=== PATIENT | female | born 1960 | race Caucasian/White ===

== ENCOUNTER → 2019-04-27 09:02 | Outpatient (BNVA) | payer MEDICARE, MEDICAID, SELFPAY | PROVIDERS: Family Provider Family Medicine; PCP Family Medicine; Visit Provider Nurse Practitioner Psychiatric/Mental Health | DX: F31.89 Other bipolar disorder (principal); F20.1 Disorganized schizophrenia; F78 Other intellectual disabilities | CPT/HCPCS: 99213 ==

== ENCOUNTER → 2019-07-23 07:28 | Outpatient (BNVA) | payer MEDICARE, MEDICAID, SELFPAY | PROVIDERS: Family Provider Family Medicine; PCP Family Medicine; Visit Provider Nurse Practitioner Psychiatric/Mental Health | DX: F31.89 Other bipolar disorder (principal); F20.1 Disorganized schizophrenia; F78 Other intellectual disabilities | CPT/HCPCS: 99213 ==

== ENCOUNTER → 2019-10-22 07:50 | Outpatient (BNVA) | payer MEDICARE, MEDICAID, SELFPAY | PROVIDERS: Family Provider Family Medicine; PCP Family Medicine; Visit Provider Nurse Practitioner Psychiatric/Mental Health | DX: F31.89 Other bipolar disorder (principal); F20.1 Disorganized schizophrenia; F78 Other intellectual disabilities; F60.3 Borderline personality disorder | CPT/HCPCS: 99213 ==

== ENCOUNTER 2019-10-23 13:53 | Outpatient (CLI) | payer MEDICARE, MEDICAID, SELFPAY ==
--- NOTE | 2019-10-23 14:01 | XR_ITS ---
WS: [id number] Bone mineral density performed on a [employer], 10/23/2019 Clinical data: POST MENOPAUSAL Findings: The first 4 lumbar vertebral bodies demonstrated the bone mineral density of 1.151 g/sq cm for a jayjay g adult T score of -0.4. Measurement of the left hip reveals a bone mineral density of 0.909 g/cm2 with a young adult T score of -0.8. Measurement of the right hip reveals the bone mineral density of 0.840 g/cm2 for young adult T score of -1.3. XR/XR DEXA axial skeleton* [id number] Impression: 1. Normal bone mineral density of the lumbar spine and left hip. 2. Osteopenia of the right hip.
--- NOTE | 2019-10-23 14:37 | MM_ITS ---
WS: [id number] BILATERAL DIGITAL SCREENING MAMMOGRAPHY WITH CAD CLINICAL INFORMATION: SCREENING HISTORY: Screening mammogram. No current complaints. COMPARISON: TECHNIQUE: Bilateral CC and MLO views. FINDINGS: Scattered fibroglandular densities bilaterally. No suspicious focal mass, asymmetry, calcifications, or architectural distortion. No evidence of malignancy. MM/[place] [id number] IMPRESSION: BI-RADS: 2-Benign FOLLOW UP: 1 Year Follow-up Recommend return to annual screening mammography.
== END 2019-10-23 13:54 | disposition home or self-care (01) ==
PROVIDERS: Family Provider Family Medicine; PCP Family Medicine; Visit Provider Family Medicine
DX: Z78.0 Asymptomatic menopausal state (principal); Z12.31 Encounter for screening mammogram for malignant neoplasm of breast; M85.88 Other specified disorders of bone density and structure, other site
CPT/HCPCS: 77067; 77080

== ENCOUNTER → 2019-12-17 08:05 | Outpatient (BNVA) | payer MEDICARE, MEDICAID, SELFPAY | PROVIDERS: Family Provider Family Medicine; PCP Family Medicine; Visit Provider Nurse Practitioner Psychiatric/Mental Health | DX: F31.89 Other bipolar disorder (principal); F20.1 Disorganized schizophrenia; F78 Other intellectual disabilities | CPT/HCPCS: 99213 ==

== ENCOUNTER → 2019-12-31 08:15 | Outpatient (BNVA) | payer MEDICARE, MEDICAID, SELFPAY | PROVIDERS: Family Provider Family Medicine; PCP Family Medicine; Visit Provider Nurse Practitioner Psychiatric/Mental Health | DX: Z79.899 Other long term (current) drug therapy (principal) | CPT/HCPCS: 80053; 80061; 80178; 83036; 85025 ==

== ENCOUNTER → 2020-02-11 08:06 | Outpatient (BNVA) | payer MEDICARE, MEDICAID, SELFPAY | PROVIDERS: Family Provider Family Medicine; PCP Family Medicine; Visit Provider Nurse Practitioner Psychiatric/Mental Health | DX: F31.89 Other bipolar disorder (principal); F20.1 Disorganized schizophrenia; F78 Other intellectual disabilities | CPT/HCPCS: 99213 ==

== ENCOUNTER 2020-03-22 21:05 | Emergency (ER) | payer MEDICARE, MEDICAID, SELFPAY ==
--- NOTE | 2020-03-22 21:15 | XRR_ITS ---
PROCEDURE INFORMATION: Exam: XR Chest, 1 View Exam date and time: 03/22/2020 9:24 PM Age: 60 years old Clinical indication: Shortness of breath; Additional info: SOB TECHNIQUE: Imaging protocol: XR of the chest Views: 1 view. COMPARISON: CR Chest 1 [place] [id number] 11/28/2016 10:39 AM FINDINGS: Lungs: Asymmetric airspace opacity is noted in the right upper lobe and retrocardiac right lung compatible with pneumonic infiltrates. The left lung is clear. The pulmonary vascularity is within normal limits. Pleural space: Unremarkable. No pleural effusion. No pneumothorax. Heart/Mediastinum: The heart is enlarged. Bones/joints: No acute abnormality. XR/XR chest 1V portable [id number] IMPRESSION: Asymmetric airspace opacity is noted in the right upper lobe and retrocardiac right lung compatible with pneumonic infiltrates.
[2020-03-22 21:19] VITALS: BP 123/84; PULSE 82; RESP 18; TEMP 37.2; O2SAT 95; BMI 35.1
--- NOTE | 2020-03-22 21:31 | ED_ITS ---
HPI - COVID General: Chief Complaint: COVID symptoms Stated Complaint: COV + Low Oxy Time Seen by Provider: 03/22/20 21:23 Source: patient Mode of arrival: ambulatory Limitations: no limitations Triage information: No fever, cough or shortness of breath . No known COVID + exposure last 14 days History of Present Illness: HPI Narrative: 60-year-old female who is here from assisted living. She had tested positive for Covid today with a rapid positive. Patient states that she has slight cough and shortness of breath. They have been checking her pulse ox every 15 minutes and had some readings in the 80s. Patient denies any shortness of breath at rest but does get dyspneic with activity. She denies any vomiting or diarrhea. She denies any pain. She said she has had a slight dry cough. COVID 19 common symptoms: positive fever(s), chills and non-productive cough; negative headache(s), throat pain, nausea, vomiting or diarrhea COVID 19 other sytmptoms: negative chest pain COVID Results: No Data to Display Review of Systems Const: Reports: fever(s) and chills Eyes: Denies: blurry vision or eye discomfort ENMT: Denies: throat pain or dental pain Card: Denies: chest pain Resp: Reports: non-productive cough GI: Denies: abdominal pain, nausea, vomiting or diarrhea : Denies: dysuria Musc: Denies: neck pain or back pain Skin/Breast: Denies: rash Neuro: Denies: headache(s) Psych: Denies: depression Allen/Lymph: Denies: easy bruising All/Imm: Denies: urticaria PFSH ED PFSH: Medical History (Updated 03/22/20 @ 21:35 by Micaela Heredia MD) Disorganized schizophrenia Other bipolar disorder Provisional Other intellectual disabilities Social History (Updated 04/27/19 @ 09:42 by Tiffany Mir LPN) Smoking and tobacco status: former smoker Physical Exam Const: COMMON NORMALS: no acute distress, patient oriented x3 and healthy appearing HENMT: COMMON NORMALS: normocephalic and atraumatic HEAD & SCALP: normocephalic and atraumatic Eye: COMMON NORMALS: Equal, round and reactive pupils present and EOMs intact bilaterally PUPIL: Yes Equal, round and reactive pupils present Neck/C-Spine: COMMON NORMALS: full ROM and supple Chest: COMMONS NORMALS: normal inspection of the chest and normal palpation of entire chest wall Resp: COMMON NORMALS: normal respiratory effort, No retractions, No use of accessory muscles and clear to auscultation bilaterally AUSCULTATION: clear to auscultation bilaterally Cardio: COMMON NORMALS: regular rate, regular rhythm and No murmurs present (Cardio) RATE: regular rate RHYTHM: regular rhythm GI: COMMON NORMALS: Normal to inspection, nondistended, normoactive bowel sounds present, Soft to palpation, non-tender and no masses PALPATION: Yes Soft to palpation Extremity: COMMON NORMALS: normal to inspection and full ROM Neuro: COMMON NORMALS: patient oriented x3, moves all extremities and no focal motor deficits Psych: COMMON NORMALS: mental status grossly normal, Normal thought process present and cooperative THOUGHT PROCESS: Normal thought process present Skin: COMMON NORMALS: no rashes or lesions noted and no wounds GENERAL SKIN EXAM: no rashes or lesions noted Course Vital Signs: Vital signs: Vital Signs Temperature 98.9 F 03/22/20 21:19 Pulse Rate 82 03/22/20 21:19 Respiratory Rate 18 03/22/20 21:19 Blood Pressure 123/84 03/22/20 21:19 Pulse Oximetry 95 03/22/20 21:19 MDM - COVID MDM Narrative: Medical decision making narrative: Jenae presents here with pneumonia. X-ray has appearance of a lobar pneumonia she did test positive for Covid earlier today but will retest her with the x-ray appearance. She is requiring oxygen here I spoke to hospitalist will admit at this time. Lab Data: Labs: Lab Results 03/22/20 Range/Units 21:35 Specimen Type Arterial Sample Site Brachial, right ABG pH 7.43 (7.35-7.45) ABG pCO2 43.2 (35-45) mmHg ABG pO2 64.7 L (80.0-100.0) mmH g ABG HCO3 28.3 H (22-26) mmol/L ABG Base Excess 3.4 H (-2.0-2.0) mmol/ L Roger Test N/a Hematocrit 38.1 (37-47) % O2 Delivery Device Room air FiO2 21.0 % Tag Clerk ID Jlg Imaging Data: CXR: Radiologist's impression: [id number] [address] XRay Report Signed Patient: Jenae Polanco Unit #: [id number] : 1960 Age/Sex: 60 / F ADM Date: 03/22/20 Loc: ER Room/Bed: Attending Dr: Ordering Provider/Ordering MD: Micaela Heredia MD Date of Service: 03/22/20 Procedure(s): XR chest 1V portable [id number] Accession Number(s): [id number] Report Number: [id number] PROCEDURE INFORMATION: Exam: XR Chest, 1 View Exam date and time: 03/22/2020 9:24 PM Age: 60 years old Clinical indication: Shortness of breath; Additional info: SOB TECHNIQUE: Imaging protocol: XR of the chest Views: 1 view. COMPARISON: CR Chest 1 [place] [id number] 11/28/2016 10:39 AM FINDINGS: Lungs: Asymmetric airspace opacity is noted in the right upper lobe and retrocardiac right lung compatible with pneumonic infiltrates. The left lung is clear. The pulmonary vascularity is within normal limits. Pleural space: Unremarkable. No pleural effusion. No pneumothorax. Heart/Mediastinum: The heart is enlarged. Bones/joints: No acute abnormality. XR/XR chest 1V portable [id number] IMPRESSION: Asymmetric airspace opacity is noted in the right upper lobe and retrocardiac right lung compatible with pneumonic infiltrates. 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
[2020-03-22 21:47] LABS: ABG PCO2 43.2 mmHg (35-45); ABG PH Result 7.43 (7.35-7.45); Arterial Blood Gas Hematocrit 38.1 % (37-47); Base Excess ABG 3.4 mmol/L (-2.0-2.0); Blood Gas Sample Site Brachial, right; Blood Gas Sample Type Arterial; HCO3 ABG 28.3 mmol/L (22-26); Oxygen Device ROOM AIR; PO2 ABG 64.7 mmHg (80.0-100.0)
[2020-03-22 21:51] VITALS: O2SAT 91
[2020-03-22 22:00] VITALS: BP 121/74; PULSE 83; RESP 19; O2SAT 93
[2020-03-22] MEDS: cefTRIAXone 1,000 MG in sodium chloride 0.9% (plus) 50 ML 100 MG IV (22:15)
--- NOTE | 2020-03-22 22:49 | PM.HP ---
Providers/Chief Complaint Primary Care Provider: Aldair Moffett MD Chief Complaint: COV + Low Oxy History of Present Illness Jenae Polanco is a 60 year old female Medications/Allergies Home Medications Medication Instructions Recorded Confirmed Last Taken Type acetaminophen 500 mg tablet 1,000 mg PO TID PRN tab 04/27/19 04/27/19 Unknown History albuterol sulfate 90 mcg/actuation 2 puff INHALATION QID PRN 04/27/19 04/27/19 Unknown History aerosol inhaler atorvastatin 80 mg tablet 80 mg PO .QHS tab 04/27/19 04/27/19 Unknown History calcium carbonate 500 mg-vitamin 1 tab PO BID tab 04/27/19 04/27/19 Unknown History D3 200 unit-vitamin K2 90 mcg tablet esomeprazole magnesium 40 mg 40 mg PO QDAY 04/27/19 04/27/19 Unknown History capsule,delayed release fluticasone propionate 50 1 spray INTRANASAL BID 04/27/19 04/27/19 Unknown History mcg/actuation nasal spray,suspension levothyroxine 50 mcg capsule 50 mcg PO .weekly cap 04/27/19 04/27/19 Unknown History levothyroxine 50 mcg tablet 50 mcg PO QDAY 04/27/19 04/27/19 Unknown History metformin 500 mg tablet,extended 1,000 mg PO QDAY tab 04/27/19 04/27/19 Unknown History release 24 hr polyethylene glycol 3350 17 17 gm PO QDAY PRN 04/27/19 04/27/19 Unknown History gram/dose oral powder haloperidol 5 mg tablet 5 mg PO BID PRN #60 tab 12/17/19 12/17/19 Unknown Rx clonazepam 0.5 mg tablet 0.5 mg PO BID #60 tab 02/11/20 02/11/20 Unknown Rx fluoxetine 20 mg capsule 20 mg PO .morning #30 cap 02/11/20 02/11/20 Unknown Rx fluoxetine 40 mg capsule 40 mg PO QAM #30 cap 02/11/20 02/11/20 Unknown Rx lithium carbonate 300 mg capsule 300 mg PO BID #60 cap 02/11/20 02/11/20 Unknown Rx risperidone 0.5 mg tablet 0.5 mg PO BID #60 tab 02/11/20 02/11/20 Unknown Rx Allergies Allergy/AdvReac Type Severity Reaction Status Date / Time Penicillins Allergy Unknown Unknown Unverified 04/27/19 09:11 Sulfa (Sulfonamide Allergy Unknown Unknown Unverified 04/27/19 09:11 Antibiotics) PFSH Acute PFSH: Medical History (Updated 03/22/20 @ 22:55 by Stephanie Reilly MD) Diabetes Disorganized schizophrenia History of hysteroscopy Hypothyroid Other bipolar disorder Provisional Other intellectual disabilities Paranoid schizophrenia Peptic ulcer disease Postmenopausal bleeding Surgical History (Updated 03/22/20 @ 22:54 by Stephanie Reilly MD) No significant past surgical history Hysteroscopy and D&C Family History (Updated 03/22/20 @ 22:54 by Stephanie Reilly MD) Other Family history non-contributory Social History (Updated 04/27/19 @ 09:42 by Tiffany Mir LPN) Smoking and tobacco status: former smoker Vitals/I&O/Wt Last Vital Signs Temp 98.9 F 03/22/20 21:19 Pulse 82 03/22/20 21:19 Resp 18 03/22/20 21:19 BP 123/84 03/22/20 21:19 Pulse Ox 95 03/22/20 21:19 Weight last 48 hrs Weight 84.368 kg A&P Assessment and plan (1) Acute respiratory failure with hypoxia: Status: Acute (2) Lobar pneumonia: Status: Acute (3) COVID-19: Status: Acute Coding Level of Care Code Acute [employer] Correspondent for [facility] Fwd Diagnoses Acute respiratory failure with hypoxia J96.01 Lobar pneumonia J18.1 COVID-19 U07.1
[2020-03-22] MEDS: azithromycin 500 MG in sodium chloride 0.9% 250 ML 250 MG IV (23:15)
[2020-03-22 23:21] VITALS: BP 114/76; PULSE 84; RESP 20; O2SAT 91
[2020-03-22 23:53] LABS: Procalcitonin 0.06 ng/mL (0-0.5)
[2020-03-23] VITALS (10 sets, daily range): BP systolic 109–132; BP diastolic 69–86; PULSE 80–93; RESP 15–28; TEMP 37.4; O2SAT 90–95
[2020-03-23 00:05] LABS: Alanine Aminotransferase 20 U/L (0-33); Albumin Level 3.9 g/dL (3.5-5.2); Alkaline Phosphatase 59 IU/L (35-105); Anion Gap 13.9 (5-19); Aspartate Amino Transferase 24 U/L (0-32); Blood Urea Nitrogen 17 mg/dL (8-23); C Reactive Protein 11.2 mg/L (0.0-4.9); Calcium 9.5 mg/dL (8.5-10.5); Carbon Dioxide 28 mmol/L (22-29); Chloride 101 mmol/L (98-107); Globulin 2.9 g/dL (1.3-4.6); Glomerular Filtration Rate 63.7 mL/min (90-130); Glucose 95 mg/dL (65-115); Osmolality Calculated 289 mOsm/kg (285-295); Potassium 3.9 mmol/L (3.5-5.1); Sodium 139 mmol/L (136-145); Total Bilirubin 0.4 mg/dL (0.15-1.2); Total Protein 6.8 g/dL (6.6-8.7)
[2020-03-23 00:09] LABS: Basophils % 0.6 %; Eosinophils % 0.8 %; Hematocrit 39.7 % (37.0-47.0); Hemoglobin 12.5 g/dL (11.5-15.3); Lymphocytes # 0.6 10^3/uL (0.8-4.8); Lymphocytes % 16.4 %; Mean Corpuscular HGB Conc 31.5 g/dL (30.0-36.0); Mean Corpuscular Hemoglobin 29.7 pg (28.0-34.0); Mean Corpuscular Volume 94.3 fL (81-99); Mean Platelet Volume 11.8 fL (7.4-10.4); Monocytes # 0.5 10^3/uL (0.2-0.9); Monocytes % 13.3 %; Neutrophils # 2.43 10^3/uL (1.8-7.7); Neutrophils % 68.6 %; Nucleated Red Blood Cells % 0 %; Platelet Count 137 10^3/cmm (130-400); Red Blood Count 4.21 10^6/uL (4.1-5.3); White Blood Count 3.5 10^3/uL (4.0-10.0)
[2020-03-23 00:17] LABS: D Dimer 0.42 ug/mIFEU (0-0.59)
[2020-03-23 00:18] LABS: Fibrinogen 574 mg/dL (174-498)
--- NOTE | 2020-03-23 00:18 | P.EN_ITS ---
Event Note Event Note: Patient was evaluated when Dr. Heredia told me about +COVID-19 and need for monitoring for O2 saturation. When I evaluated the patient she had no symptoms was saturating well on room air 9394% caregiver was at the bedside who told me about all the HPI, she did not experience any symptoms today when O2 saturation was checked it was 88% on room air hence she was brought to the hospital. No fever, nausea, vomiting, diarrhea at the facility. Point to be noted as she has nail [place] and she used regular pulse ox to monitor O2 saturation. Diagnosis in the ER revealed normal CBC, BMP mildly reactive CRP 11.2, chest x- ray showed COVID-19 pattern infiltrate with dense consolidation right upper lob e, she has simple pneumonia for which she will be discharged on Levaquin from the ER(however procalcitonin is unremarkable), I have talked with Dr. Maldonado. No need to start Decadron or remdesivir as she is asymptomatic and not requiring oxygenation supplementation. Caregiver understood the plan, Dr. Maldonado updated.
[2020-03-23 00:53] LABS: SARS Covid-2 Antigen Positive (Negative)
--- NOTE | 2020-03-23 01:08 | W.ED.COVID ---
HPI - COVID General: Chief Complaint: COVID symptoms Stated Complaint: COV + Low Oxy Time Seen by Provider: 03/22/20 21:23 Source: patient Mode of arrival: ambulatory Limitations: no limitations Triage information: No fever, cough or shortness of breath. No known COVID + exposure last 14 days History of Present Illness: HPI Narrative: I was asked by Dr. Reilly to discharge this patient for him as he was busy and did not feel the patient needed admitted. He did see and evaluate the patient and has informed me he will place a consult note. Patient was to be admitted for mild hypoxemia and being positive for the COVID-[address] Reilly's assessment the patient has no respiratory distress and is saturating 95% or above. Ultimately after full evaluation he wanted the patient discharged home and asked me to prescribe Levaquin but no oxygen or steroids. COVID 19 common symptoms: positive non-productive cough and dyspnea; negative fever(s), chills, productive cough, fatigue, body aches, headache(s), throat pain, nausea, vomiting or diarrhea COVID 19 other sytmptoms: negative chest pain or confusion COVID Results: SARS-CoV-2 Antigen (Rapid) Positive (Negative) H 03/22/20 22:15 03/22/20 Review of Systems Const: Denies: fever(s), chills, body aches, fatigue, malaise or diaphoresis Eyes: Denies: change in vision, blurry vision, photophobia, eye discomfort, eye discharge, eye redness or yellow eyes ENMT: Denies: throat pain, odynophagia, hoarseness, swelling of lips/tongue, ear or mastoid pain, ear discharge, change in hearing or nasal discharge Card: Denies: chest pain, palpitations, irregular heart rhythm, edema, lightheadedness, syncope, pre-syncope, dyspnea on exertion or orthopnea Resp: Reports: dyspnea and non-productive cough; Denies: productive cough, wheezing, hemoptysis or chest congestion GI: Denies: abdominal pain, nausea, vomiting, hematemesis, coffee ground emesis, heartburn, diarrhea, constipation, GI cramping, hematochezia or melena : Denies: flank pain, dysuria, urinary frequency, urinary urgency or hematuria Musc: Denies: neck pain, back pain, extremity pain, extremity swelling, joint pain, joint swelling, joint redness, joint warmth or joint stiffness Skin/Breast: Denies: rash, pruritus, erythema, skin pain or skin tenderness Neuro: Denies: headache(s), numbness in extremities, weakness in extremities, sensory changes, lack of coordination, difficulty walking, dizziness, vertigo, confusion, Slurred speech present or seizure-like activity Allen/Lymph: Denies: easy bruising, easy bleeding, petechiae, purpura or enlarged lymph nodes All/Imm: Denies: urticaria, throat swelling, tongue swelling, facial swelling or acute wheezing PFSH ED PFSH: Medical History Diabetes Disorganized schizophrenia History of hysteroscopy Hypothyroid Other bipolar disorder Provisional Other intellectual disabilities Paranoid schizophrenia Peptic ulcer disease Postmenopausal bleeding Surgical History No significant past surgical history Hysteroscopy and D&C Family History Other Family history non-contributory Social History Smoking and tobacco status: former smoker Physical Exam Const: COMMON NORMALS: no acute distress, patient oriented x3, no limitations and alert GENERAL APPEARANCE: cooperative HENMT: COMMON NORMALS: normocephalic, atraumatic, external ears normal, EAC's normal and Normal external nose present HEAD & SCALP: normal to inspection, normocephalic and atraumatic FACE & SINUS: normal facial exam and face symmetric NOSE: Normal external nose present and Normal nares present EXTERNAL EAR: Yes external ears normal EXTERNAL AUDITORY CANAL: EAC's normal MOUTH: Normal oral and palatal mucosa present, lip normal and tongue normal Eye: COMMON NORMALS: Equal, round and reactive pupils present and conjunctivae normal GENERAL EYE: appearance normal, both eyes and all related structures ALIGNMENT: Yes alignment normal PERIORBITAL: periorbital findings normal EYELID: eyelids normal CONJUNCTIVA: Yes conjunctivae normal SCLERA: sclerae normal PUPIL: Yes Equal, round and reactive pupils present Neck/C-Spine: COMMON NORMALS: full ROM, no lymphadenopathy, supple, no meningeal signs and no JVD GENERAL: Yes normal visual inspection and Yes trachea midline Chest: COMMONS NORMALS: normal inspection of the chest and normal palpation of entire chest wall Resp: COMMON NORMALS: normal respiratory effort, No retractions, No use of accessory muscles and clear to auscultation bilaterally EFFORT & INSPECTION: Yes able to speak in complete sentences and Yes symmetric chest movement AUSCULTATION: clear to auscultation bilaterally, no crackles, no rales, rhonchi and no wheezes Cardio: COMMON NORMALS: no JVD, regular rate, regular rhythm, S1 normal heart sound present and S2 normal heart sound present RATE: regular rate RHYTHM: regular rhythm HEART SOUNDS: S1 normal heart sound present, S2 normal heart sound present, no click, no gallops, no murmurs and no rubs GI: COMMON NORMALS: Soft to palpation and No hepatosplenomegaly present PALPATION: Yes Soft to palpation, No Tenderness to palpation present (GI), No Guarding due to palpation present (GI), No Rigid due to palpation, Yes No hepatosplenomegaly present, No Hernia present, No Palpable mass present and No Pulsatile mass present : COMMON NORMALS: Yes no CVA tenderness BLADDER/KIDNEY EXAM: Yes no CVA tenderness EXTERNAL FEMALE EXAM: No Hernia present Back/Pelvis: COMMON NORMALS: no CVA tenderness, thoracic and lumbar spine normal to inspection, no thoracic nor lumbar tenderness and thoraco-lumbar ROM normal Extremity: COMMON NORMALS: normal to inspection, full ROM, capillary refill normal, no joint enlargement, no clubbing, cyanosis or edema and no calf tenderness Neuro: COMMON NORMALS: patient oriented x3, CN's II-XII intact bilaterally, moves all extremities, no focal motor deficits and no sensory deficits noted SENSORIUM/ORIENTATION: Yes alert MENINGEAL SIGNS: Yes no meningeal signs SPEECH: speech normal Psych: COMMON NORMALS: mental status grossly normal, Normal thought process present, cooperative, normal affect, speech normal and activity/motor behavior normal SPEECH: Yes normal speech THOUGHT PROCESS: Normal thought process present Skin: COMMON NORMALS: no rashes or lesions noted, turgor normal, no jaundice, no petechiae and no mottling GENERAL SKIN EXAM: no rashes or lesions noted and turgor normal Course Vital Signs: Vital signs: Vital Signs Temperature 98.9 F 03/22/20 21:19 Pulse Rate 80 03/23/20 00:21 Respiratory Rate 20 H 03/23/20 00:21 Blood Pressure 114/70 03/23/20 00:21 Pulse Oximetry 95 03/23/20 00:21 MDM - COVID MDM Narrative: Medical decision making narrative: Patient was seen and evaluated by Dr. Heredia who felt the patient needed admitted for mild hypoxemia and COVID-[address] Reilly has seen and evaluated the patient and after talking with the fur blender they all feel comfortable taking her home instead. I been asked to start the patient on Levaquin daily and they do have the ability to monitor the patient for her pulse ox at the assisted living facility and agree to return for the parameters we discussed. This is how the patient, her fur blender and Dr. Reilly want to proceed so I will go ahead and place the discharge orders and prescriptions per his request. After reviewing criteria the patient is also a candidate for Bamlanivimab and after discussing all the risks and benefits the patient does want to go through with the infusion. I will give for this and also discharge her home on Levaquin as requested. Lab Data: Attestation: I reviewed the patient's lab results. Labs: Lab Results 03/22/20 03/22/20 03/22/20 Range/Units 21:35 22:15 22:35 WBC 3.5 L (4.0-10.0) 10^3/ uL RBC 4.21 (4.1-5.3) 10^6/u L Hgb 12.5 (11.5-15.3) g/dL Hct 39.7 (37.0-47.0) % MCV 94.3 (81-99) fL MCH 29.7 (28.0-34.0) pg MCHC 31.5 (30.0-36.0) g/dL RDW 13.0 (12.1-15.1) % Plt Count 137 (130-400) 10^3/c mm MPV 11.8 H (7.4-10.4) fL Neut % (Auto) 68.6 % Lymph % (Auto) 16.4 % [place] % (Auto) 13.3 % Eos % (Auto) 0.8 % Baso % (Auto) 0.6 % Neut # (Auto) 2.43 (1.8-7.7) 10^3/u L Lymph # (Auto) 0.6 L (0.8-4.8) 10^3/u L [place] # (Auto) 0.5 (0.2-0.9) 10^3/u L Eos # (Auto) 0.0 (0.0-0.8) 10^3/u L Baso # (Auto) 0.0 (0.0-0.1) 10^3/u L Nucleated RBC % (a uto) 0 % Nucleated RBCs # 0.0 /100WBC Fibrinogen (174-498) mg/dL D-Dimer (0-0.59) ug/mIFE U Specimen Type Arterial Sample Site Brachial, right ABG pH 7.43 (7.35-7.45) ABG pCO2 43.2 (35-45) mmHg ABG pO2 64.7 L (80.0-100.0) mmH g ABG HCO3 28.3 H (22-26) mmol/L ABG Base Excess 3.4 H (-2.0-2.0) mmol/ L Roger Test N/a Hematocrit 38.1 (37-47) % O2 Delivery Device Room air FiO2 21.0 % Honing Machine Set Up Operator Tool ID [id number] Sodium (136-145) mmol/L Potassium (3.5-5.1) mmol/L Chloride (98-107) mmol/L Carbon Dioxide (22-29) mmol/L Anion Gap (5-19) BUN (8-23) mg/dL Creatinine (0.5-0.9) mg/dL GFR Calculation (90-130) mL/min Glucose (65-115) mg/dL Calculated Osmolal ity (285-295) mOsm/k g Calcium (8.5-10.5) mg/dL Total Bilirubin (0.15-1.2) mg/dL AST (0-32) U/L ALT (0-33) U/L Alkaline Phosphata se (35-105) IU/L C-Reactive Protein (0.0-4.9) mg/L Total Protein (6.6-8.7) g/dL Albumin (3.5-5.2) g/dL Globulin (1.3-4.6) g/dL Procalcitonin (0-0.5) ng/mL SARS-CoV-2 Ag (Rap id) Positive H (Negative) 03/22/20 03/22/20 Range/Units 22:35 22:35 WBC (4.0-10.0) 10^3/ uL RBC (4.1-5.3) 10^6/u L Hgb (11.5-15.3) g/dL Hct (37.0-47.0) % MCV (81-99) fL MCH (28.0-34.0) pg MCHC (30.0-36.0) g/dL RDW (12.1-15.1) % Plt Count (130-400) 10^3/c mm MPV (7.4-10.4) fL Neut % (Auto) % Lymph % (Auto) % [place] % (Auto) % Eos % (Auto) % Baso % (Auto) % Neut # (Auto) (1.8-7.7) 10^3/u L Lymph # (Auto) (0.8-4.8) 10^3/u L [place] # (Auto) (0.2-0.9) 10^3/u L Eos # (Auto) (0.0-0.8) 10^3/u L Baso # (Auto) (0.0-0.1) 10^3/u L Nucleated RBC % (a uto) % Nucleated RBCs # /100WBC Fibrinogen 574 H (174-498) mg/dL D-Dimer 0.42 (0-0.59) ug/mIFE U Specimen Type Sample Site ABG pH (7.35-7.45) ABG pCO2 (35-45) mmHg ABG pO2 (80.0-100.0) mmH g ABG HCO3 (22-26) mmol/L ABG Base Excess (-2.0-2.0) mmol/ L Roger Test Hematocrit (37-47) % O2 Delivery Device FiO2 % Honing Machine Set Up Operator Tool ID Sodium 139 (136-145) mmol/L Potassium 3.9 (3.5-5.1) mmol/L Chloride 101 (98-107) mmol/L Carbon Dioxide 28 (22-29) mmol/L Anion Gap 13.9 (5-19) BUN 17 (8-23) mg/dL Creatinine 0.9 (0.5-0.9) mg/dL GFR Calculation 63.7 L (90-130) mL/min Glucose 95 (65-115) mg/dL Calculated Osmolal ity 289 (285-295) mOsm/k g Calcium 9.5 (8.5-10.5) mg/dL Total Bilirubin 0.4 (0.15-1.2) mg/dL AST 24 (0-32) U/L ALT 20 (0-33) U/L Alkaline Phosphata se 59 (35-105) IU/L C-Reactive Protein 11.2 H (0.0-4.9) mg/L Total Protein 6.8 (6.6-8.7) g/dL Albumin 3.9 (3.5-5.2) g/dL Globulin 2.9 (1.3-4.6) g/dL Procalcitonin 0.06 (0-0.5) ng/mL SARS-CoV-2 Ag (Rap id) (Negative) Imaging Data: CXR: Attestation: I personally reviewed and interpreted this imaging study as follows: My impression: Right upper lobe infiltrate COVID Results: SARS-CoV-2 Antigen (Rapid) Positive (Negative) H 03/22/20 22:15 03/22/20 Monoclonal Antibody Treatments Inclusion/Exclusion Criteria weight >/= 40 kg and + direct Sars-Cov-2 test less than 7-10 days ago BMI >/= 35 and has diabetes not requiring hospitalization, not requiring oxygen (if not chronically on oxygen) and no increase oxygen requirement (if chronically on oxygen) Patient education patient/family/caregiver received/reviewed fact sheet, Emergency Use Authorization/unapproved drug status discussed with patient/family/caregiver, alternatives to this treatment discussed with patient/family/caregiver, risks and benefits of medication reviewed with patient/family/caregiver, patient/family/caregiver given opportunity for questions, which were answered and patient consents to receiving Monoclonal Antibody Treatment Plan for treatment Meets criteria for Monoclonal Antibody infusion Ordering Monoclonal Antibody infusion for today Discharge Plan Discharge Patient Disposition: Home Clinical Impression: COVID-19 virus infection, Pneumonia Condition: Stable Prescriptions: New cefdinir 300 mg capsule 300 mg PO Q12H 10 Days Qty: 20 RF: 0 doxycycline hyclate 100 mg capsule 100 mg PO BID 10 Days Qty: 20 RF: 0 No Action haloperidol 5 mg tablet 5 mg PO BID PRN (Reason: agitation) Qty: 60 RF: 4 clonazepam [Klonopin] 0.5 mg tablet 0.5 mg PO BID Qty: 60 RF: 4 fluoxetine [Prozac] 40 mg capsule 40 mg PO QAM Qty: 30 RF: 4 fluoxetine [Prozac] 20 mg capsule 20 mg PO .morning Qty: 30 RF: 4 lithium carbonate 300 mg capsule 300 mg PO BID Qty: 60 RF: 4 risperidone [Risperdal] 0.5 mg tablet 0.5 mg PO BID Qty: 60 RF: 4 esomeprazole magnesium [Nexium] 40 mg capsule,delayed release(DR/EC) 40 mg PO QDAY RF: 0 polyethylene glycol 3350 [Miralax] 17 gram/dose powder 17 gm PO QDAY PRNRF: 0 fluticasone propionate 50 mcg/actuation spray,suspension 1 spray INTRANASAL BID RF: 0 albuterol sulfate 90 mcg/actuation HFA aerosol inhaler 2 puff INHALATION QID PRNRF: 0 calcium carb-vitamin D3-vit K2 500 mg calcium- 200 unit-90 mcg tablet 1 tab PO BID RF: 0 levothyroxine 50 mcg tablet 50 mcg PO QDAY RF: 0 levothyroxine 50 mcg capsule 50 mcg PO .weekly RF: 0 acetaminophen [Tylenol Extra Strength] 500 mg tablet 1,000 mg PO TID PRNRF: 0 atorvastatin [Lipitor] 80 mg tablet 80 mg PO .QHS RF: 0 metformin 500 mg tablet extended release 24 hr 1,000 mg PO QDAY RF: 0 Discharge Orders: Discharge ED (Routine); Ordered 03/23/20 Ordered By: Maliha Astorga Referrals: Aldair Moffett MD [Primary Care Provider] - 7-10 days Discharge Diet: Usual diet Discharge Activity: Limit activity as instructed Patient Instructions: Viral Pneumonia (ED) Activity Restrictions/Additional Instructions: Please return to the ER immediately for any of the signs or symptoms listed on your discharge instruction sheets, worsening/changing of your symptoms, you are not getting better as quickly as expected, or for ANY other cause or concerns. Stop taking your lithium until you have finished the antibiotics as I have prescribed you. You may resume your typical lithium dose once the antibiotics are finished. Keep yourself at home and quarantined away from others until you are cleared by the health department. Return to the ER for a pulse oximetry reading less than 90% for more than 90 seconds. Check your oxygen level every 2-4 hours at home. Return to the ER for worsening symptoms, uncontrolled fever, vomiting, or for any other cause for concern. Coding Level of Care Code ED Bank Clerk for Chg Fwd Exam Comprehensive
--- NOTE | 2020-03-23 05:24 | PC.NURSE ---
i agree with the assessment
--- NOTE | 2020-03-25 15:41 | DCPLANNER ---
Addendum entered by Luiza Alberto 04/05/20 14:19: general manager [employer] called to check on patient after the BAM infusion. general manager [employer] spoke with patients caregiver, was told that patient was feeling much better, that patient returned to work. Patient has not been admitted to the hospital. general manager [employer] was told that patients skin is really dry. Addendum entered by Luiza Alberto 03/28/20 14:06: general manager [employer] called to check on patient after BAM infusion. general manager [employer] spoke with patients caregiver, stated that patient was feeling good, lots of energy. Patient has no complaints at this time. Original Note: general manager [employer] had message that patient received the BAM infusion. general manager [employer] called patient to check on patient after receiving the infusion. 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 Before the infusion, patient had a cough, was very tired, had fatique, patients oxygen was low, no fever, no shortness of breath. After infusion, patient was brought back to the ER on 03.24.20 because her oxygen was running low, but patient checked out ok and was sent home. Patients cough is better, and she does not have a fever. 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 Moffett, pcp. Can not tell a big difference, patient was not that sick to begin with, she is not getting any worse.
== END 2020-03-23 05:50 | disposition home or self-care (01) ==
PROVIDERS: Emergency Medicine; Emergency Provider Emergency Medicine; PCP Family Medicine
DX: U07.1 COVID-19 (principal); J12.89 Other viral pneumonia; Z87.891 Personal history of nicotine dependence; E11.9 Type 2 diabetes mellitus without complications
CPT/HCPCS: 12345; 36600; 71045; 80053; 82803; 84145; 85025; 85378; 85384; 86140; 87040; 87426; 96365; 96367; 99283; 99284; J0456; J0696; J7050

== ENCOUNTER 2020-03-24 04:00 | Emergency (ER) | payer MEDICARE, MEDICAID, SELFPAY ==
[2020-03-24] VITALS (8 sets, daily range): BP systolic 112–138; BP diastolic 60–85; PULSE 73–83; RESP 13–24; TEMP 36.8; O2SAT 90–98; BMI 34.4
--- NOTE | 2020-03-24 04:15 | ECG_ITS ---
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 Measurements Intervals Colp Rate: 82 P: 15 OR: 140 QRS: -17 QRSD: 96 T: 15 QT: 374 QTc: 438 Interpretive Statements SINUS RHYTHM LOW QRS VOLTAGE IN PRECORDIAL LEADS [QRS DEFLECTION < 1.0 mV IN CHEST LEADS] POSSIBLE ANTERIOR MYOCARDIAL INFARCTION [30 ms Q WAVE IN V3/V4, OR R < 0.2 mV IN V4], PROBABLY OLD INTERPRETATION BASED ON A DEFAULT AGE OF 40 YEARS Compared to ECG 11/28/2016 11:04:56 Low QRS voltage now present Myocardial infarct finding now present Electronically Signed On 03-24-2020 22:40:14 RN TRANSFER by Driss Sullivan M.D. [id number]
--- NOTE | 2020-03-24 04:15 | XR_ITS ---
WS: [id number] XR chest 1V portable [id number] REASON FOR EXAM: Dyspnea FINDINGS: Compared to previous examination of 03/22/2020, the infiltrative changes in the right mid lateral lluvia g field are less dense and defined. This may indicate some degree of resolution. Right and left lower lung luna remain unchanged. No new findings. XR/XR chest 1V portable [id number] IMPRESSION: Possibly some interval resolution in the right lung infiltrate as above.
--- NOTE | 2020-03-24 04:20 | ED_ITS ---
Documented by User: Maliha Astorga 03/24/20 05:36 HPI - SOB/Dyspnea General: Chief Complaint: COVID symptoms Stated Complaint: COVID +/ yesterday payal robertson verified Time Seen by Provider: 03/24/20 04:15 Source: patient and other (Caregiver) Mode of arrival: ambulatory Limitations: no limitations History of Present Illness: HPI Narrative: Jenae is a 60-year-old female who is brought in by her caregiver as she lives in an assisted living facility. The report is of low pulse ox tonight. The patient has been sick for approximately 5 days with flulike symptoms. She tested positive for Covid here yesterday. The patient was to be admitted to the hospital for mild hypoxemia but after Dr. Reilly evaluated the patient he did not feel she met criteria and asked me to discharge her with Levaquin. The patient also qualified for infusion of Bamlanivimab which she completed without any problem. Tonight the patient's caregiver stated that she had a pulse ox that ratings from 83 to 88% while she was sleeping. Upon awakening the had a difficult time getting it to come up but here in the hospital she is ranging anywhere from 91 to 98%. Patient does not demonstrate any type of respiratory distress. The patient states that she has had a mild headache but that was earlier in the day and she now feels fine. She states otherwise she does not feel any worse than she did before. She is unaware of any exacerbating or alleviating factors other than rest does seem to help her fatigue. Patient denies any other complaints or concerns. Associated symptoms: Deny abdominal pain, chest congestion, chest pain, diaphoresis, dizziness, extremity pain, fever(s), hemoptysis, lightheadedness, nausea, orthopnea, palpitations, syncope or vomiting Review of Systems Const: Reports: fatigue and malaise; Denies: fever(s), chills, body aches or diaphoresis Eyes: Denies: change in vision, blurry vision, photophobia, eye discomfort, eye discharge, eye redness or yellow eyes ENMT: Denies: throat pain, odynophagia, hoarseness, swelling of lips/tongue, ear or mastoid pain, ear discharge, change in hearing or nasal discharge Card: Denies: chest pain, palpitations, irregular heart rhythm, edema, lightheadedness, syncope, pre-syncope, dyspnea on exertion or orthopnea Resp: Reports: dyspnea and non-productive cough; Denies: productive cough, wheezing, hemoptysis or chest congestion GI: Denies: abdominal pain, nausea, vomiting, hematemesis, coffee ground emesis, heartburn, diarrhea, constipation, GI cramping, hematochezia or melena : Denies: flank pain, dysuria, urinary frequency, urinary urgency or hematuria Musc: Denies: neck pain, back pain, extremity pain, extremity swelling, joint pain, joint swelling, joint redness, joint warmth or joint stiffness Skin/Breast: Denies: rash, pruritus, erythema, skin pain or skin tenderness Neuro: Denies: headache(s), numbness in extremities, weakness in extremities, sensory changes, lack of coordination, difficulty walking, dizziness, vertigo, confusion, Slurred speech present or seizure-like activity Allen/Lymph: Denies: easy bruising, easy bleeding, petechiae, purpura or enlarged lymph nodes All/Imm: Denies: urticaria, throat swelling, tongue swelling, facial swelling or acute wheezing PFSH ED PFSH: Medical History Diabetes Disorganized schizophrenia History of hysteroscopy Hypothyroid Other bipolar disorder Provisional Other intellectual disabilities Paranoid schizophrenia Peptic ulcer disease Postmenopausal bleeding Surgical History No significant past surgical history Hysteroscopy and D&C Family History Other Family history non-contributory Social History Smoking and tobacco status: former smoker Physical Exam Const: COMMON NORMALS: no acute distress, patient oriented x3, no limitations and alert GENERAL APPEARANCE: cooperative HENMT: COMMON NORMALS: normocephalic, atraumatic, external ears normal, EAC's normal and Normal external nose present HEAD & SCALP: normal to inspection, normocephalic and atraumatic FACE & SINUS: normal facial exam and face symmetric NOSE: Normal external nose present and Normal nares present EXTERNAL EAR: Yes external ears normal EXTERNAL AUDITORY CANAL: EAC's normal MOUTH: Normal oral and palatal mucosa present, lip normal and tongue normal Eye: COMMON NORMALS: Equal, round and reactive pupils present and conjunctivae normal GENERAL EYE: appearance normal, both eyes and all related structures ALIGNMENT: Yes alignment normal PERIORBITAL: periorbital findings normal EYELID: eyelids normal CONJUNCTIVA: Yes conjunctivae normal SCLERA: sclerae normal PUPIL: Yes Equal, round and reactive pupils present Neck/C-Spine: COMMON NORMALS: full ROM, no lymphadenopathy, supple, no meningeal signs and no JVD GENERAL: Yes normal visual inspection and Yes trachea midline Chest: COMMONS NORMALS: normal inspection of the chest and normal palpation of entire chest wall Resp: COMMON NORMALS: normal respiratory effort, No retractions, No use of accessory muscles and clear to auscultation bilaterally EFFORT & INSPECTION: Yes able to speak in complete sentences and Yes symmetric chest movement AUSCULTATION: clear to auscultation bilaterally, no crackles, no rales, no rhonchi and no wheezes Cardio: COMMON NORMALS: no JVD, regular rate, regular rhythm, S1 normal heart sound present and S2 normal heart sound present RATE: regular rate RHYTHM: regular rhythm HEART SOUNDS: S1 normal heart sound present, S2 normal heart sound present, no click, no gallops, no murmurs and no rubs GI: COMMON NORMALS: Soft to palpation and No hepatosplenomegaly present PALPATION: Yes Soft to palpation, No Tenderness to palpation present (GI), No Guarding due to palpation present (GI), No Rigid due to palpation, Yes No hepatosplenomegaly present, No Hernia present, No Palpable mass present and No Pulsatile mass present : COMMON NORMALS: Yes no CVA tenderness BLADDER/KIDNEY EXAM: Yes no CVA tenderness EXTERNAL FEMALE EXAM: No Hernia present Back/Pelvis: COMMON NORMALS: no CVA tenderness, thoracic and lumbar spine n ormal to inspection, no thoracic nor lumbar tenderness and thoraco-lumbar ROM normal Extremity: COMMON NORMALS: normal to inspection, full ROM, capillary refill normal, no joint enlargement, no clubbing, cyanosis or edema and no calf tenderness Neuro: COMMON NORMALS: patient oriented x3, CN's II-XII intact bilaterally, moves all extremities, no focal motor deficits and no sensory deficits noted SENSORIUM/ORIENTATION: Yes alert MENINGEAL SIGNS: Yes no meningeal signs SPEECH: speech normal Psych: COMMON NORMALS: mental status grossly normal, Normal thought process present, cooperative, normal affect, speech normal and activity/motor behavior normal SPEECH: Yes normal speech THOUGHT PROCESS: Normal thought process present Skin: COMMON NORMALS: no rashes or lesions noted, turgor normal, no jaundice, no petechiae and no mottling GENERAL SKIN EXAM: no rashes or lesions noted and turgor normal Course Vital Signs: Vital signs: Vital Signs Temperature 98.2 F 03/24/20 04:22 Pulse Rate 82 03/24/20 06:30 Respiratory Rate 24 H 03/24/20 06:30 Blood Pressure 138/85 03/24/20 06:30 Pulse Oximetry 95 03/24/20 08:55 MDM - SOB/Dyspnea Lab Data: Labs: Lab Results 03/24/20 03/24/20 03/24/20 Range/Units 04:45 04:47 05:00 WBC 3.6 L (4.0-10.0) 10^3/ uL RBC 3.99 L (4.1-5.3) 10^6/u L Hgb 11.9 (11.5-15.3) g/dL Hct 37.2 (37.0-47.0) % MCV 93.2 (81-99) fL MCH 29.8 (28.0-34.0) pg MCHC 32.0 (30.0-36.0) g/dL RDW 12.9 (12.1-15.1) % Plt Count 142 (130-400) 10^3/c mm MPV 11.2 H (7.4-10.4) fL Neut % (Auto) 68.3 % Lymph % (Auto) 19.6 % Butler % (Auto) 11.2 % Eos % (Auto) 0.6 % Baso % (Auto) 0.3 % Neut # (Auto) 2.44 (1.8-7.7) 10^3/u L Lymph # (Auto) 0.7 L (0.8-4.8) 10^3/u L Butler # (Auto) 0.4 (0.2-0.9) 10^3/u L Eos # (Auto) 0.0 (0.0-0.8) 10^3/u L Baso # (Auto) 0.0 (0.0-0.1) 10^3/u L Nucleated RBC % (a uto) 0 % Nucleated RBCs # 0.0 /100WBC PT (12.1-14.9) SECO NDS INR (0.8-1.2) Fibrinogen (174-498) mg/dL D-Dimer (0-0.59) ug/mIFE U Specimen Type Arterial Sample Site Brachial, right ABG pH 7.41 (7.35-7.45) ABG pCO2 43.2 (35-45) mmHg ABG pO2 60.8 L (80.0-100.0) mmH g ABG HCO3 27.3 H (22-26) mmol/L ABG Base Excess 2.3 H (-2.0-2.0) mmol/ L Roger Test N/a Hematocrit 39.6 (37-47) % O2 Delivery Device Room air FiO2 21.0 % Natural Sciences Manager ID Jlg Sodium (136-145) mmol/L Potassium (3.5-5.1) mmol/L Chloride (98-107) mmol/L Carbon Dioxide (22-29) mmol/L Anion Gap (5-19) BUN (8-23) mg/dL Creatinine (0.5-0.9) mg/dL GFR Calculation (90-130) mL/min Glucose (65-115) mg/dL Calculated Osmolal ity (285-295) mOsm/k g Lactic Acid (0.5-2.2) mmol/L Calcium (8.5-10.5) mg/dL Magnesium (1.7-2.3) mg/dL Total Bilirubin (0.15-1.2) mg/dL AST (0-32) U/L ALT (0-33) U/L Alkaline Phosphata se (35-105) IU/L Lactate Dehydrogen ase (135-214) U/L Troponin T Gen 5 n g/L (0-10) ng/L C-Reactive Protein (0.0-4.9) mg/L Total Protein (6.6-8.7) g/dL Albumin (3.5-5.2) g/dL Globulin (1.3-4.6) g/dL Procalcitonin (0-0.5) ng/mL Influenza Type A A g Negative (Negative) Influenza Type B A g Negative (Negative) 03/24/20 03/24/20 03/24/20 Range/Units 05:00 05:00 05:00 WBC (4.0-10.0) 10^3/ uL RBC (4.1-5.3) 10^6/u L Hgb (11.5-15.3) g/dL Hct (37.0-47.0) % MCV (81-99) fL MCH (28.0-34.0) pg MCHC (30.0-36.0) g/dL RDW (12.1-15.1) % Plt Count (130-400) 10^3/c mm MPV (7.4-10.4) fL Neut % (Auto) % Lymph % (Auto) % Butler % (Auto) % Eos % (Auto) % Baso % (Auto) % Neut # (Auto) (1.8-7.7) 10^3/u L Lymph # (Auto) (0.8-4.8) 10^3/u L Butler # (Auto) (0.2-0.9) 10^3/u L Eos # (Auto) (0.0-0.8) 10^3/u L Baso # (Auto) (0.0-0.1) 10^3/u L Nucleated RBC % (a uto) % Nucleated RBCs # /100WBC PT 13.10 (12.1-14.9) SECO NDS INR 0.97 (0.8-1.2) Fibrinogen 556 H (174-498) mg/dL D-Dimer 0.48 (0-0.59) ug/mIFE U Specimen Type Sample Site ABG pH (7.35-7.45) ABG pCO2 (35-45) mmHg ABG pO2 (80.0-100.0) mmH g ABG HCO3 (22-26) mmol/L ABG Base Excess (-2.0-2.0) mmol/ L Roger Test Hematocrit (37-47) % O2 Delivery Device FiO2 % Natural Sciences Manager ID Sodium 139 (136-145) mmol/L Potassium 3.9 (3.5-5.1) mmol/L Chloride 102 (98-107) mmol/L Carbon Dioxide 28 (22-29) mmol/L Anion Gap 12.9 (5-19) BUN 16 (8-23) mg/dL Creatinine 0.8 (0.5-0.9) mg/dL GFR Calculation 72.9 L (90-130) mL/min Glucose 106 (65-115) mg/dL Calculated Osmolal ity 290 (285-295) mOsm/k g Lactic Acid 0.6 (0.5-2.2) mmol/L Calcium 9.1 (8.5-10.5) mg/dL Magnesium 1.7 (1.7-2.3) mg/dL Total Bilirubin 0.4 (0.15-1.2) mg/dL AST 23 (0-32) U/L ALT 18 (0-33) U/L Alkaline Phosphata se 56 (35-105) IU/L Lactate Dehydrogen ase 184 (135-214) U/L Troponin T Gen 5 n g/L (0-10) ng/L C-Reactive Protein 29.0 H (0.0-4.9) mg/L Total Protein 6.3 L (6.6-8.7) g/dL Albumin 3.8 (3.5-5.2) g/dL Globulin 2.5 (1.3-4.6) g/dL Procalcitonin 0.06 (0-0.5) ng/mL Influenza Type A A g (Negative) Influenza Type B A g (Negative) 03/24/20 Range/Units 05:00 WBC (4.0-10.0) 10^3/ uL RBC (4.1-5.3) 10^6/u L Hgb (11.5-15.3) g/dL Hct (37.0-47.0) % MCV (81-99) fL MCH (28.0-34.0) pg MCHC (30.0-36.0) g/dL RDW (12.1-15.1) % Plt Count (130-400) 10^3/c mm MPV (7.4-10.4) fL Neut % (Auto) % Lymph % (Auto) % Butler % (Auto) % Eos % (Auto) % Baso % (Auto) % Neut # (Auto) (1.8-7.7) 10^3/u L Lymph # (Auto) (0.8-4.8) 10^3/u L Butler # (Auto) (0.2-0.9) 10^3/u L Eos # (Auto) (0.0-0.8) 10^3/u L Baso # (Auto) (0.0-0.1) 10^3/u L Nucleated RBC % (a uto) % Nucleated RBCs # /100WBC PT (12.1-14.9) SECO NDS INR (0.8-1.2) Fibrinogen (174-498) mg/dL D-Dimer (0-0.59) ug/mIFE U Specimen Type Sample Site ABG pH (7.35-7.45) ABG pCO2 (35-45) mmHg ABG pO2 (80.0-100.0) mmH g ABG HCO3 (22-26) mmol/L ABG Base Excess (-2.0-2.0) mmol/ L Roger Test Hematocrit (37-47) % O2 Delivery Device FiO2 % Natural Sciences Manager ID Sodium (136-145) mmol/L Potassium (3.5-5.1) mmol/L Chloride (98-107) mmol/L Carbon Dioxide (22-29) mmol/L Anion Gap (5-19) BUN (8-23) mg/dL Creatinine (0.5-0.9) mg/dL GFR Calculation (90-130) mL/min Glucose (65-115) mg/dL Calculated Osmolal ity (285-295) mOsm/k g Lactic Acid (0.5-2.2) mmol/L Calcium (8.5-10.5) mg/dL Magnesium (1.7-2.3) mg/dL Total Bilirubin (0.15-1.2) mg/dL AST (0-32) U/L ALT (0-33) U/L Alkaline Phosphata se (35-105) IU/L Lactate Dehydrogen ase (135-214) U/L Troponin T Gen 5 n g/L 6 (0-10) ng/L C-Reactive Protein (0.0-4.9) mg/L Total Protein (6.6-8.7) g/dL Albumin (3.5-5.2) g/dL Globulin (1.3-4.6) g/dL Procalcitonin (0-0.5) ng/mL Influenza Type A A g (Negative) Influenza Type B A g (Negative) Imaging Data^: CXR: Attestation: I personally reviewed and interpreted this imaging study as follows: My impression: Worsening infiltrates bilaterally greatest on the right upper lobe EKG Data^: EKG 1: Attestation: I personally reviewed and interpreted this EKG as follows: EKG Interpretation Date: 03/24/20 EKG interpretation time: 05:18 Interpretation: Normal sinus rhythm at 82 beats a minute, no blocks, normal intervals, left axis deviation, no acute ST-T wave changes. Discharge Plan Discharge Patient Disposition: Home Clinical Impression: COVID-19 virus infection Condition: Stable Prescriptions: No Action haloperidol 5 mg tablet 5 mg PO BID PRN (Reason: agitation) Qty: 60 RF: 4 clonazepam [Klonopin] 0.5 mg tablet 0.5 mg PO BID Qty: 60 RF: 4 fluoxetine [Prozac] 40 mg capsule 40 mg PO QAM Qty: 30 RF: 4 fluoxetine [Prozac] 20 mg capsule 20 mg PO .morning Qty: 30 RF: 4 lithium carbonate 300 mg capsule 300 mg PO BID Qty: 60 RF: 4 risperidone [Risperdal] 0.5 mg tablet 0.5 mg PO BID Qty: 60 RF: 4 esomeprazole magnesium [Nexium] 40 mg capsule,delayed release(DR/EC) 40 mg PO QDAY RF: 0 polyethylene glycol 3350 [Miralax] 17 gram/dose powder 17 gm PO QDAY PRNRF: 0 fluticasone propionate 50 mcg/actuation spray,suspension 1 spray INTRANASAL BID RF: 0 albuterol sulfate 90 mcg/actuation HFA aerosol inhaler 2 puff INHALATION QID PRNRF: 0 calcium carb-vitamin D3-vit K2 500 mg calcium- 200 unit-90 mcg tablet 1 tab PO BID RF: 0 levothyroxine 50 mcg tablet 50 mcg PO QDAY RF: 0 levothyroxine 50 mcg capsule 50 mcg PO .weekly RF: 0 acetaminophen [Tylenol Extra Strength] 500 mg tablet 1,000 mg PO TID PRNRF: 0 atorvastatin [Lipitor] 80 mg tablet 80 mg PO .QHS RF: 0 metformin 500 mg tablet extended release 24 hr 1,000 mg PO QDAY RF: 0 cefdinir 300 mg capsule 300 mg PO Q12H 10 Days Qty: 20 RF: 0 doxycycline hyclate 100 mg capsule 100 mg PO BID 10 Days Qty: 20 RF: 0 Discharge Orders: Discharge ED (Routine); Ordered 03/24/20 Ordered By: Naun Vences Referrals: Aldair oMffett MD [Primary Care Provider] - Discharge Diet: Usual diet Discharge Activity: Resume usual activity Activity Restrictions/Additional Instructions: It is likely that Jenae's oxygen levels dropped below 98 when sleeping even when she is not infected with COVID-19. If she is not showing signs of distress, you do not need to check her oxygen levels while she is sleeping. It is safe to check it when she is awake every few hours, at which time if it is less than 90%, she should return to the emergency department. It is important to get an accurate reading to have the pulse oximeter firmly on her finger and her hand steady and nontremulous. In the emergency department, when her hand was shaking, the oxygen appeared to be in the mid 80s, but we could see that the waveform on the screen was not accurate. When her hand was still, oxygen went to 97%. She has no increased work of breathing right now. Coding Level of Care Code ED Lump Machine Operator for Chg Fwd Exam Comprehensive Documented by User: Naun Vences MD 03/24/20 09:21 HPI - SOB/Dyspnea General: Chief Complaint: COVID symptoms Stated Complaint: COVID +/ yesterday payal robertson verified Time Seen by Provider: 03/24/20 04:15 [facility] ED PFSH: Medical History Diabetes Disorganized schizophrenia History of hysteroscopy Hypothyroid Other bipolar disorder Provisional Other intellectual disabilities Paranoid schizophrenia Peptic ulcer disease Postmenopausal bleeding Surgical History No significant past surgical history Hysteroscopy and D&C Family History Other Family history non-contributory Social History Smoking and tobacco status: former smoker Course Vital Signs: Vital signs: Vital Signs Temperature 98.2 F 03/24/20 04:22 Pulse Rate 82 03/24/20 06:30 Respiratory Rate 24 H 03/24/20 06:30 Blood Pressure 138/85 03/24/20 06:30 Pulse Oximetry 95 03/24/20 08:55 MDM - SOB/Dyspnea MDM Narrative: Medical decision making narrative: Patient remained hemodynamically stable throughout ED course. When she holds her hand still, oxygen saturation is 97% with no increased work of breathing. She has no respiratory distress at this time. I had a long discussion with the patient and her window draper about oxygen monitoring processes at her residential facility. The reason they came back to the emergency department is because they were checking her oxygen saturation while she slept. Given her body habitus, I suspect she chronically becomes hypoxic into the 80s when sleeping. She does not wear nighttime oxygen or CPAP. I advised him to only check oxygen levels if the patient appears to be in distress throughout the night, otherwise it is safe to monitor her oxygen levels while she is awake during the day. We discussed the possibility of following up to get a sleep study for concern of chronic nighttime hypoxia. Patient and window draper show good understanding and agreed to the plan. She be discharged in stable and improved condition. Lab Data: Labs: Lab Results 03/24/20 03/24/20 03/24/20 Range/Units 04:45 04:47 05:00 WBC 3.6 L (4.0-10.0) 10^3/ uL RBC 3.99 L (4.1-5.3) 10^6/u L Hgb 11.9 (11.5-15.3) g/dL Hct 37.2 (37.0-47.0) % MCV 93.2 (81-99) fL MCH 29.8 (28.0-34.0) pg MCHC 32.0 (30.0-36.0) g/dL RDW 12.9 (12.1-15.1) % Plt Count 142 (130-400) 10^3/c mm MPV 11.2 H (7.4-10.4) fL Neut % (Auto) 68.3 % Lymph % (Auto) 19.6 % Butler % (Auto) 11.2 % Eos % (Auto) 0.6 % Baso % (Auto) 0.3 % Neut # (Auto) 2.44 (1.8-7.7) 10^3/u L Lymph # (Auto) 0.7 L (0.8-4.8) 10^3/u L Butler # (Auto) 0.4 (0.2-0.9) 10^3/u L Eos # (Auto) 0.0 (0.0-0.8) 10^3/u L Baso # (Auto) 0.0 (0.0-0.1) 10^3/u L Nucleated RBC % (a uto) 0 % Nucleated RBCs # 0.0 /100WBC PT (12.1-14.9) SECO NDS INR (0.8-1.2) Fibrinogen (174-498) mg/dL D-Dimer (0-0.59) ug/mIFE U Specimen Type Arterial Sample Site Brachial, right ABG pH 7.41 (7.35-7.45) ABG pCO2 43.2 (35-45) mmHg ABG pO2 60.8 L (80.0-100.0) mmH g ABG HCO3 27.3 H (22-26) mmol/L ABG Base Excess 2.3 H (-2.0-2.0) mmol/ L Roger Test N/a Hematocrit 39.6 (37-47) % O2 Delivery Device Room air FiO2 21.0 % Natural Sciences Manager ID Jlg Sodium (136-145) mmol/L Potassium (3.5-5.1) mmol/L Chloride (98-107) mmol/L Carbon Dioxide (22-29) mmol/L Anion Gap (5-19) BUN (8-23) mg/dL Creatinine (0.5-0.9) mg/dL GFR Calculation (90-130) mL/min Glucose (65-115) mg/dL Calculated Osmolal ity (285-295) mOsm/k g Lactic Acid (0.5-2.2) mmol/L Calcium (8.5-10.5) mg/dL Magnesium (1.7-2.3) mg/dL Total Bilirubin (0.15-1.2) mg/dL AST (0-32) U/L ALT (0-33) U/L Alkaline Phosphata se (35-105) IU/L Lactate Dehydrogen ase (135-214) U/L Troponin T Gen 5 n g/L (0-10) ng/L C-Reactive Protein (0.0-4.9) mg/L Total Protein (6.6-8.7) g/dL Albumin (3.5-5.2) g/dL Globulin (1.3-4.6) g/dL Procalcitonin (0-0.5) ng/mL Influenza Type A A g Negative (Negative) Influenza Type B A g Negative (Negative) 03/24/20 03/24/20 03/24/20 Range/Units 05:00 05:00 05:00 WBC (4.0-10.0) 10^3/ uL RBC (4.1-5.3) 10^6/u L Hgb (11.5-15.3) g/dL Hct (37.0-47.0) % MCV (81-99) fL MCH (28.0-34.0) pg MCHC (30.0-36.0) g/dL RDW (12.1-15.1) % Plt Count (130-400) 10^3/c mm MPV (7.4-10.4) fL Neut % (Auto) % Lymph % (Auto) % Butler % (Auto) % Eos % (Auto) % Baso % (Auto) % Neut # (Auto) (1.8-7.7) 10^3/u L Lymph # (Auto) (0.8-4.8) 10^3/u L Butler # (Auto) (0.2-0.9) 10^3/u L Eos # (Auto) (0.0-0.8) 10^3/u L Baso # (Auto) (0.0-0.1) 10^3/u L Nucleated RBC % (a uto) % Nucleated RBCs # /100WBC PT 13.10 (12.1-14.9) SECO NDS INR 0.97 (0.8-1.2) Fibrinogen 556 H (174-498) mg/dL D-Dimer 0.48 (0-0.59) ug/mIFE U Specimen Type Sample Site ABG pH (7.35-7.45) ABG pCO2 (35-45) mmHg ABG pO2 (80.0-100.0) mmH g ABG HCO3 (22-26) mmol/L ABG Base Excess (-2.0-2.0) mmol/ L Roger Test Hematocrit (37-47) % O2 Delivery Device FiO2 % Natural Sciences Manager ID Sodium 139 (136-145) mmol/L Potassium 3.9 (3.5-5.1) mmol/L Chloride 102 (98-107) mmol/L Carbon Dioxide 28 (22-29) mmol/L Anion Gap 12.9 (5-19) BUN 16 (8-23) mg/dL Creatinine 0.8 (0.5-0.9) mg/dL GFR Calculation 72.9 L (90-130) mL/min Glucose 106 (65-115) mg/dL Calculated Osmolal ity 290 (285-295) mOsm/k g Lactic Acid 0.6 (0.5-2.2) mmol/L Calcium 9.1 (8.5-10.5) mg/dL Magnesium 1.7 (1.7-2.3) mg/dL Total Bilirubin 0.4 (0.15-1.2) mg/dL AST 23 (0-32) U/L ALT 18 (0-33) U/L Alkaline Phosphata se 56 (35-105) IU/L Lactate Dehydrogen ase 184 (135-214) U/L Troponin T Gen 5 n g/L (0-10) ng/L C-Reactive Protein 29.0 H (0.0-4.9) mg/L Total Protein 6.3 L (6.6-8.7) g/dL Albumin 3.8 (3.5-5.2) g/dL Globulin 2.5 (1.3-4.6) g/dL Procalcitonin 0.06 (0-0.5) ng/mL Influenza Type A A g (Negative) Influenza Type B A g (Negative) 03/24/20 Range/Units 05:00 WBC (4.0-10.0) 10^3/ uL RBC (4.1-5.3) 10^6/u L Hgb (11.5-15.3) g/dL Hct (37.0-47.0) % MCV (81-99) fL MCH (28.0-34.0) pg MCHC (30.0-36.0) g/dL RDW (12.1-15.1) % Plt Count (130-400) 10^3/c mm MPV (7.4-10.4) fL Neut % (Auto) % Lymph % (Auto) % Butler % (Auto) % Eos % (Auto) % Baso % (Auto) % Neut # (Auto) (1.8-7.7) 10^3/u L Lymph # (Auto) (0.8-4.8) 10^3/u L Butler # (Auto) (0.2-0.9) 10^3/u L Eos # (Auto) (0.0-0.8) 10^3/u L Baso # (Auto) (0.0-0.1) 10^3/u L Nucleated RBC % (a uto) % Nucleated RBCs # /100WBC PT (12.1-14.9) SECO NDS INR (0.8-1.2) Fibrinogen (174-498) mg/dL D-Dimer (0-0.59) ug/mIFE U Specimen Type Sample Site ABG pH (7.35-7.45) ABG pCO2 (35-45) mmHg ABG pO2 (80.0-100.0) mmH g ABG HCO3 (22-26) mmol/L ABG Base Excess (-2.0-2.0) mmol/ L Rgoer Test Hematocrit (37-47) % O2 Delivery Device FiO2 % Natural Sciences Manager ID Sodium (136-145) mmol/L Potassium (3.5-5.1) mmol/L Chloride (98-107) mmol/L Carbon Dioxide (22-29) mmol/L Anion Gap (5-19) BUN (8-23) mg/dL Creatinine (0.5-0.9) mg/dL GFR Calculation (90-130) mL/min Glucose (65-115) mg/dL Calculated Osmolal ity (285-295) mOsm/k g Lactic Acid (0.5-2.2) mmol/L Calcium (8.5-10.5) mg/dL Magnesium (1.7-2.3) mg/dL Total Bilirubin (0.15-1.2) mg/dL AST (0-32) U/L ALT (0-33) U/L Alkaline Phosphata se (35-105) IU/L Lactate Dehydrogen ase (135-214) U/L Troponin T Gen 5 n g/L 6 (0-10) ng/L C-Reactive Protein (0.0-4.9) mg/L Total Protein (6.6-8.7) g/dL Albumin (3.5-5.2) g/dL Globulin (1.3-4.6) g/dL Procalcitonin (0-0.5) ng/mL Influenza Type A A g (Negative) Influenza Type B A g (Negative) Discharge Plan Discharge Patient Disposition: Home Clinical Impression: COVID-19 virus infection Condition: Stable Prescriptions: No Action haloperidol 5 mg tablet 5 mg PO BID PRN (Reason: agitation) Qty: 60 RF: 4 clonazepam [Klonopin] 0.5 mg tablet 0.5 mg PO BID Qty: 60 RF: 4 fluoxetine [Prozac] 40 mg capsule 40 mg PO QAM Qty: 30 RF: 4 fluoxetine [Prozac] 20 mg capsule 20 mg PO .morning Qty: 30 RF: 4 lithium carbonate 300 mg capsule 300 mg PO BID Qty: 60 RF: 4 risperidone [Risperdal] 0.5 mg tablet 0.5 mg PO BID Qty: 60 RF: 4 esomeprazole magnesium [Nexium] 40 mg capsule,delayed release(DR/EC) 40 mg PO QDAY RF: 0 polyethylene glycol 3350 [Miralax] 17 gram/dose powder 17 gm PO QDAY PRNRF: 0 fluticasone propionate 50 mcg/actuation spray,suspension 1 spray INTRANASAL BID RF: 0 albuterol sulfate 90 mcg/actuation HFA aerosol inhaler 2 puff INHALATION QID PRNRF: 0 calcium carb-vitamin D3-vit K2 500 mg calcium- 200 unit-90 mcg tablet 1 tab PO BID RF: 0 levothyroxine 50 mcg tablet 50 mcg PO QDAY RF: 0 levothyroxine 50 mcg capsule 50 mcg PO .weekly RF: 0 acetaminophen [Tylenol Extra Strength] 500 mg tablet 1,000 mg PO TID PRNRF: 0 atorvastatin [Lipitor] 80 mg tablet 80 mg PO .QHS RF: 0 metformin 500 mg tablet extended release 24 hr 1,000 mg PO QDAY RF: 0 cefdinir 300 mg capsule 300 mg PO Q12H 10 Days Qty: 20 RF: 0 doxycycline hyclate 100 mg capsule 100 mg PO BID 10 Days Qty: 20 RF: 0 Discharge Orders: Discharge ED (Routine); Ordered 03/24/20 Ordered By: Naun Vences Referrals: Aldair Moffett MD [Primary Care Provider] - Discharge Diet: Usual diet Discharge Activity: Resume usual activity Activity Restrictions/Additional Instructions: It is likely that Jenae's oxygen levels dropped below 98 when sleeping even when she is not infected with COVID-19. If she is not showing signs of distress, you do not need to check her oxygen levels while she is sleeping. It is safe to check it when she is awake every few hours, at which time if it is less than 90%, she should return to the emergency department. It is important to get an accurate reading to have the pulse oximeter firmly on her finger and her hand steady and nontremulous. In the emergency department, when her hand was shaking, the oxygen appeared to be in the mid 80s, but we could see that the waveform on the screen was not accurate. When her hand was still, oxygen went to 97%. She has no increased work of breathing right now. Coding Level of Care Code ED Lump Machine Operator for Chandrika Fwhenrietta Exam Comprehensive
[2020-03-24] MEDS: sodium chloride 0.9% 1,000 ML 75 ML IV (04:55)
[2020-03-24 04:58] LABS: Blood Gas Sample Site Brachial, right; Blood Gas Sample Type Arterial
[2020-03-24 05:33] LABS: INR 0.97 (0.8-1.2)
[2020-03-24 05:34] LABS: Basophils % 0.3 %; Eosinophils % 0.6 %; Hematocrit 37.2 % (37.0-47.0); Hemoglobin 11.9 g/dL (11.5-15.3); Lymphocytes # 0.7 10^3/uL (0.8-4.8); Lymphocytes % 19.6 %; Mean Corpuscular Hemoglobin 29.8 pg (28.0-34.0); Mean Corpuscular Volume 93.2 fL (81-99); Mean Platelet Volume 11.2 fL (7.4-10.4); Monocytes # 0.4 10^3/uL (0.2-0.9); Monocytes % 11.2 %; Neutrophils # 2.44 10^3/uL (1.8-7.7); Neutrophils % 68.3 %; Nucleated Red Blood Cells % 0 %; Platelet Count 142 10^3/cmm (130-400); Red Blood Count 3.99 10^6/uL (4.1-5.3); Red Cell Distribution Width 12.9 % (12.1-15.1); White Blood Count 3.6 10^3/uL (4.0-10.0)
[2020-03-24 05:36] LABS: Lactic Sepsis W/Reflex 0.6 mmol/L (0.5-2.2)
[2020-03-24 05:37] LABS: D Dimer 0.48 ug/mIFEU (0-0.59)
[2020-03-24 05:38] LABS: Fibrinogen 556 mg/dL (174-498); Troponin T (5th) Once 6 ng/L (0-10)
--- NOTE | 2020-03-24 05:40 | PC.NURSE ---
Patient lives at a residential facility, caregiver in room with patient.
[2020-03-24 05:46] LABS: Procalcitonin 0.06 ng/mL (0-0.5)
[2020-03-24 05:59] LABS: Alanine Aminotransferase 18 U/L (0-33); Albumin Level 3.8 g/dL (3.5-5.2); Alkaline Phosphatase 56 IU/L (35-105); Anion Gap 12.9 (5-19); Aspartate Amino Transferase 23 U/L (0-32); Blood Urea Nitrogen 16 mg/dL (8-23); Calcium 9.1 mg/dL (8.5-10.5); Carbon Dioxide 28 mmol/L (22-29); Chloride 102 mmol/L (98-107); Globulin 2.5 g/dL (1.3-4.6); Glomerular Filtration Rate 72.9 mL/min (90-130); Glucose 106 mg/dL (65-115); Lactate Dehydrogenase 184 U/L (135-214); Magnesium 1.7 mg/dL (1.7-2.3); Osmolality Calculated 290 mOsm/kg (285-295); Potassium 3.9 mmol/L (3.5-5.1); Sodium 139 mmol/L (136-145); Total Bilirubin 0.4 mg/dL (0.15-1.2); Total Protein 6.3 g/dL (6.6-8.7)
[2020-03-24 06:15] LABS: Influenza A by IFA Negative (Negative); Influenza B by IFA Negative (Negative)
[2020-03-24 09:25] LABS: ABG PCO2 58.8 mmHg (35-45); ABG PH Result 7.29 (7.35-7.45); Arterial Blood Gas Hematocrit 30.5 % (37-47); Base Excess ABG 1.2 mmol/L (-2.0-2.0); Blood Gas Allen Test Pos; Blood Gas Operator Identificat Anonymous; HCO3 ABG 28.5 mmol/L (22-26); PO2 ABG 62.4 mmHg (80.0-100.0)
== END 2020-03-24 10:30 | disposition home or self-care (01) ==
PROVIDERS: Emergency Provider Emergency Medicine; PCP Family Medicine
DX: U07.1 COVID-19 (principal); E11.9 Type 2 diabetes mellitus without complications; Z87.891 Personal history of nicotine dependence
CPT/HCPCS: 12345; 36600; 71045; 80053; 82803; 83605; 83615; 83735; 84145; 84484; 85025; 85378; 85384; 85610; 86140; 87040; 87804; 93005; 96360; 96361; 99283; 99284; J7030

== ENCOUNTER → 2020-05-13 07:28 | Outpatient (BNVA) | payer MEDICARE, MEDICAID, SELFPAY | PROVIDERS: PCP Family Medicine; Visit Provider Nurse Practitioner Psychiatric/Mental Health | DX: F31.89 Other bipolar disorder (principal); F20.1 Disorganized schizophrenia; F78 Other intellectual disabilities | CPT/HCPCS: 99213 ==

== ENCOUNTER → 2020-07-04 16:14 | Outpatient (BNVA) | payer MEDICARE, MEDICAID, SELFPAY | PROVIDERS: PCP Family Medicine; Visit Provider Podiatrist Foot & Ankle Surgery | DX: S99.919A Unspecified injury of unspecified ankle, initial encounter (principal); S82.53XA Displaced fracture of medial malleolus of unspecified tibia, initial encounter for closed fracture; X58.XXXA Exposure to other specified factors, initial encounter | CPT/HCPCS: 73610 ==

== ENCOUNTER → 2020-08-04 08:44 | Outpatient (BNVA) | payer MEDICARE, MEDICAID, SELFPAY | PROVIDERS: PCP Family Medicine; Visit Provider Nurse Practitioner Psychiatric/Mental Health | DX: F31.89 Other bipolar disorder (principal); F20.1 Disorganized schizophrenia; F78 Other intellectual disabilities | CPT/HCPCS: 99214 ==

== ENCOUNTER → 2020-10-17 09:19 | Outpatient (BNVA) | payer MEDICARE, MEDICAID, SELFPAY | PROVIDERS: PCP Family Medicine; Visit Provider Nurse Practitioner Psychiatric/Mental Health | DX: F31.89 Other bipolar disorder (principal); F20.1 Disorganized schizophrenia; F78 Other intellectual disabilities | CPT/HCPCS: 99214 ==

== ENCOUNTER 2020-10-31 08:19 | Outpatient (CLI) | payer MEDICARE, MEDICAID, SELFPAY ==
--- NOTE | 2020-10-31 08:29 | MM_ITS ---
WS: [id number] Exam: [place] [id number] Date/Time of Exam: 10/31/2020 8:44 AM Reason For Exam: SCREENING VIEWS: MLO and CC views both breasts. Comparison made with prior exam of 06/29/2016, 07/10/2017, 08/01/2018 and 10/23/2019. Findings: There was no sign of mass, architectural distortion or suspicious calcification in either breast. Sc attered fibroglandular densities MM/[place] [id number] Impression: BI-RADS: 2-Benign FOLLOW-UP: 1 Year Follow-up This mammogram was also analyzed by the Computer Aided Detection System R2 Imag e Sales Support Associate.
== END 2020-10-31 08:20 | disposition home or self-care (01) ==
LOC: RADSHAW 08:24
PROVIDERS: PCP Family Medicine; Visit Provider Family Medicine
DX: Z12.31 Encounter for screening mammogram for malignant neoplasm of breast (principal)
CPT/HCPCS: 77067

== ENCOUNTER → 2021-01-12 09:42 | Outpatient (BNVA) | payer MEDICARE, MEDICAID, SELFPAY | PROVIDERS: PCP Family Medicine; Visit Provider Nurse Practitioner Psychiatric/Mental Health | DX: F31.89 Other bipolar disorder (principal); F20.1 Disorganized schizophrenia | CPT/HCPCS: 99214 ==

== ENCOUNTER → 2021-06-29 09:20 | Outpatient (BNVA) | payer MEDICARE, MEDICAID, SELFPAY | PROVIDERS: PCP Family Medicine; Visit Provider Nurse Practitioner Psychiatric/Mental Health | DX: F31.89 Other bipolar disorder (principal); F20.1 Disorganized schizophrenia | CPT/HCPCS: 99214 ==

== ENCOUNTER → 2021-07-26 08:04 | Outpatient (BNVA) | payer MEDICARE, MEDICAID, SELFPAY | PROVIDERS: PCP Family Medicine; Visit Provider Nurse Practitioner Psychiatric/Mental Health | DX: F31.89 Other bipolar disorder (principal); F20.1 Disorganized schizophrenia | CPT/HCPCS: 99214 ==

== ENCOUNTER → 2021-08-28 09:00 | Outpatient (BNVA) | payer MEDICARE, MEDICAID, SELFPAY | PROVIDERS: PCP Family Medicine; Visit Provider Nurse Practitioner Psychiatric/Mental Health | DX: F31.89 Other bipolar disorder (principal); F20.1 Disorganized schizophrenia | CPT/HCPCS: 99214 ==

== ENCOUNTER 2021-11-15 12:36 | Outpatient (CLI) | payer MEDICARE, MEDICAID, SELFPAY ==
--- NOTE | 2021-11-15 12:43 | MM_ITS ---
WS: [id number] BILATERAL 3D TOMOSYNTHESIS DIGITAL SCREENING MAMMOGRAPHY WITH CAD CLINICAL INFORMATION: SCREENING HISTORY: Screening mammogram. No current complaints. COMPARISON: October 31, 2020 TECHNIQUE: Bilateral CC and MLO views. FINDINGS: Scattered fibroglandular densities bilaterally. A few tiny incidental punctate calcifications. No rosa maria picious focal mass, asymmetry, calcifications, or architectural distortion. No evidence of malignancy . MM/[place] [id number] IMPRESSION: BI-RADS: 2-Benign FOLLOW UP: 1 Year Follow-up Recommend return to annual screening mammography.
--- NOTE | 2021-11-15 12:43 | XR_ITS ---
WS: [id number] DEXA (DUAL ENERGY X-RAY ABSORPTIOMETRY) Bone mineral density was performed using a Cannae machine. HISTORY: POSTMENOPAUSAL COMPARISON: 10/23/2019 Lumbar spine BMD (L1-L3): 1.160 T score: -0.1 Z score: 0.2 Total hip BMD: Left: 0.847 g/cm2. T score: -1.3 Z score: -1.0 Right: 0.702 g/cm2. T score: -2.4 Z score: -2.2 10 year probability of a major osteoporotic fracture is 29.3%. Compared to the prior study from 10/23/2019. Lumbar spine bone mineral density has decrease by 0.3%. Bilateral hips bone mineral density has decrease by 11.3%. XR/XR DEXA axial skeleton* [id number] IMPRESSION: OSTEOPENIA based upon the WHO classification for females. Significant decrease in the bone mineral density within the hips since the prio r study.
== END 2021-11-15 12:37 | disposition home or self-care (01) ==
PROVIDERS: PCP Family Medicine; Visit Provider Family Medicine
DX: Z12.31 Encounter for screening mammogram for malignant neoplasm of breast (principal); Z78.0 Asymptomatic menopausal state; M85.80 Other specified disorders of bone density and structure, unspecified site
CPT/HCPCS: 77063; 77067; 77080

== ENCOUNTER → 2022-01-26 09:06 | Outpatient (BNVA) | payer MEDICARE, MEDICAID, SELFPAY | PROVIDERS: PCP Family Medicine; Visit Provider Podiatrist Foot & Ankle Surgery | DX: Z79.84 Long term (current) use of oral hypoglycemic drugs (principal); E11.42 Type 2 diabetes mellitus with diabetic polyneuropathy; L60.3 Nail dystrophy; B35.1 Tinea unguium; L85.3 Xerosis cutis | CPT/HCPCS: 11721; 99213 ==

== ENCOUNTER → 2022-04-16 08:35 | Outpatient (BNVA) | payer MEDICARE, MEDICAID, SELFPAY | PROVIDERS: PCP Family Medicine; Visit Provider Podiatrist Foot & Ankle Surgery | DX: E11.8 Type 2 diabetes mellitus with unspecified complications (principal); E11.42 Type 2 diabetes mellitus with diabetic polyneuropathy; L60.3 Nail dystrophy; B35.1 Tinea unguium; L85.3 Xerosis cutis; Z79.84 Long term (current) use of oral hypoglycemic drugs | CPT/HCPCS: 11721 ==

== ENCOUNTER → 2022-06-18 09:11 | Outpatient (BNVA) | payer MEDICARE, MEDICAID, SELFPAY | PROVIDERS: PCP Family Medicine; Visit Provider Podiatrist Foot & Ankle Surgery | DX: E11.8 Type 2 diabetes mellitus with unspecified complications (principal); E11.42 Type 2 diabetes mellitus with diabetic polyneuropathy; B35.1 Tinea unguium; L85.3 Xerosis cutis; Z79.84 Long term (current) use of oral hypoglycemic drugs | CPT/HCPCS: 11721 ==

== ENCOUNTER → 2022-08-20 09:08 | Outpatient (BNVA) | payer MEDICARE, MEDICAID, SELFPAY | PROVIDERS: PCP Family Medicine; Visit Provider Podiatrist Foot & Ankle Surgery | DX: E11.42 Type 2 diabetes mellitus with diabetic polyneuropathy (principal); B35.1 Tinea unguium; L85.3 Xerosis cutis; Z79.84 Long term (current) use of oral hypoglycemic drugs | CPT/HCPCS: 11721 ==

== ENCOUNTER → 2022-10-22 09:32 | Outpatient (BNVA) | payer MEDICARE, MEDICAID, SELFPAY | PROVIDERS: PCP Family Medicine; Visit Provider Podiatrist Foot & Ankle Surgery | DX: E11.42 Type 2 diabetes mellitus with diabetic polyneuropathy (principal); B35.1 Tinea unguium; L85.3 Xerosis cutis; L84 Corns and callosities; Z79.84 Long term (current) use of oral hypoglycemic drugs | CPT/HCPCS: 11056; 11721 ==

== ENCOUNTER 2022-12-14 13:09 | Outpatient (CLI) | payer MEDICARE, MEDICAID, OTHER, SELFPAY ==
--- NOTE | 2022-12-14 13:23 | MM_ITS ---
WS: [id number] BILATERAL 3D TOMOSYNTHESIS DIGITAL SCREENING MAMMOGRAPHY WITH CAD CLINICAL INFORMATION: SCREENING HISTORY: Screening mammogram. No current complaints. COMPARISON: 2021 TECHNIQUE: Bilateral CC and MLO views. FINDINGS: Scattered fibroglandular densities bilaterally. No suspicious focal mass, asymmetry, calcifications, or architectural distortion. No evidence of malignancy. Few tiny incidental punctate calcifications. IMPRESSION: MM/[place] [id number] BI-RADS: 2-Benign FOLLOW UP: 1 Year Follow-up Recommend return to annual screening mammography.
== END 2022-12-14 13:10 | disposition home or self-care (01) ==
PROVIDERS: PCP Family Medicine; Visit Provider Family Medicine
DX: Z12.31 Encounter for screening mammogram for malignant neoplasm of breast (principal)
CPT/HCPCS: 77063; 77067

== ENCOUNTER → 2022-12-28 09:41 | Outpatient (BNVA) | payer MEDICARE, MEDICAID, SELFPAY | PROVIDERS: PCP Family Medicine; Visit Provider Podiatrist Foot & Ankle Surgery | DX: E11.42 Type 2 diabetes mellitus with diabetic polyneuropathy (principal); B35.1 Tinea unguium; L85.3 Xerosis cutis; L84 Corns and callosities; Z79.84 Long term (current) use of oral hypoglycemic drugs | CPT/HCPCS: 11056; 11721 ==

== ENCOUNTER → 2023-03-11 08:24 | Outpatient (BNVA) | payer MEDICARE, MEDICAID, SELFPAY | PROVIDERS: PCP Family Medicine; Visit Provider Podiatrist Foot & Ankle Surgery | DX: B35.1 Tinea unguium (principal); E11.42 Type 2 diabetes mellitus with diabetic polyneuropathy; L85.3 Xerosis cutis; L84 Corns and callosities; Z79.84 Long term (current) use of oral hypoglycemic drugs | CPT/HCPCS: 11721 ==

== ENCOUNTER → 2023-06-03 09:17 | Outpatient (BNVA) | payer MEDICARE, MEDICAID, SELFPAY | PROVIDERS: PCP Family Medicine; Visit Provider Podiatrist Foot & Ankle Surgery | DX: B35.1 Tinea unguium (principal); E11.42 Type 2 diabetes mellitus with diabetic polyneuropathy; L85.3 Xerosis cutis; L84 Corns and callosities; Z79.84 Long term (current) use of oral hypoglycemic drugs | CPT/HCPCS: 11055; 11721 ==

== ENCOUNTER → 2023-07-24 08:37 | Outpatient (BNVA) | payer MEDICARE, MEDICAID, OTHER, SELFPAY | PROVIDERS: PCP Family Medicine; Visit Provider Psychiatry & Neurology Psychiatry | DX: Z79.899 Other long term (current) drug therapy (principal) | CPT/HCPCS: 80178; 85025 ==

== ENCOUNTER → 2023-08-06 09:46 | Outpatient (BNVA) | payer MEDICARE, MEDICAID, SELFPAY | PROVIDERS: PCP Family Medicine; Visit Provider Podiatrist Foot & Ankle Surgery | DX: B35.1 Tinea unguium (principal); E11.42 Type 2 diabetes mellitus with diabetic polyneuropathy; L85.3 Xerosis cutis; L84 Corns and callosities; Z79.84 Long term (current) use of oral hypoglycemic drugs | CPT/HCPCS: 11721 ==

== ENCOUNTER → 2023-10-07 09:39 | Outpatient (BNVA) | payer MEDICARE, MEDICAID, SELFPAY | PROVIDERS: PCP Family Medicine; Visit Provider Podiatrist Foot & Ankle Surgery | DX: B35.1 Tinea unguium (principal); E11.42 Type 2 diabetes mellitus with diabetic polyneuropathy; L85.3 Xerosis cutis; L84 Corns and callosities; Z79.84 Long term (current) use of oral hypoglycemic drugs | CPT/HCPCS: 11721 ==

== ENCOUNTER → 2023-12-12 09:00 | Outpatient (BNVA) | payer MEDICARE, MEDICAID, SELFPAY | PROVIDERS: PCP Family Medicine; Visit Provider Podiatrist Foot & Ankle Surgery | DX: B35.1 Tinea unguium (principal); E11.42 Type 2 diabetes mellitus with diabetic polyneuropathy; L85.3 Xerosis cutis; L84 Corns and callosities; Z79.84 Long term (current) use of oral hypoglycemic drugs | CPT/HCPCS: 11056; 11721 ==

== ENCOUNTER 2023-12-17 12:51 | Outpatient (CLI) | payer MEDICARE, MEDICAID, SELFPAY ==
--- NOTE | 2023-12-17 12:57 | MM_ITS ---
WS: [email or web address] BILATERAL 3D TOMOSYNTHESIS DIGITAL SCREENING MAMMOGRAPHY WITH CAD CLINICAL INFORMATION: SCREENING HISTORY: Screening mammogram. No current complaints. COMPARISON: 2022 TECHNIQUE: Bilateral CC and MLO views. FINDINGS: The breasts are composed of heterogeneous fibroglandular density tissue, which can limit the detectio n of small underlying mass lesions. No suspicious mass, asymmetry, calcifications, or architectural d istortion. No evidence of malignancy. MM/[place] [id number] IMPRESSION: DENSITY:The breasts are heterogeneously dense, which may obscure small masses. BI-RADS: 2 - Benign FOLLOW UP: 1 Year Follow-up Recommend return to annual screening mammography.
== END 2023-12-17 12:52 | disposition home or self-care (01) ==
LOC: RAD 12:51
PROVIDERS: PCP Family Medicine; Visit Provider Family Medicine
DX: Z12.31 Encounter for screening mammogram for malignant neoplasm of breast (principal); R92.333 Mammographic heterogeneous density, bilateral breasts
CPT/HCPCS: 77063; 77067

== ENCOUNTER → 2024-02-13 10:28 | Outpatient (BNVA) | payer MEDICARE, MEDICAID, SELFPAY | PROVIDERS: PCP Family Medicine; Visit Provider Podiatrist Foot & Ankle Surgery | DX: B35.1 Tinea unguium (principal); E11.42 Type 2 diabetes mellitus with diabetic polyneuropathy; L85.3 Xerosis cutis; L84 Corns and callosities; Z79.84 Long term (current) use of oral hypoglycemic drugs | CPT/HCPCS: 11056; 11721 ==

== ENCOUNTER → 2024-04-16 08:58 | Outpatient (BNVA) | payer MEDICARE, MEDICAID, OTHER, SELFPAY | PROVIDERS: PCP Family Medicine; Visit Provider Podiatrist Foot & Ankle Surgery | DX: B35.1 Tinea unguium (principal); E11.42 Type 2 diabetes mellitus with diabetic polyneuropathy; L85.3 Xerosis cutis; L84 Corns and callosities; Z79.84 Long term (current) use of oral hypoglycemic drugs | CPT/HCPCS: 11056; 11721 ==

== ENCOUNTER → 2024-06-18 08:53 | Outpatient (BNVA) | payer MEDICARE, MEDICAID, SELFPAY | PROVIDERS: PCP Family Medicine; Visit Provider Podiatrist Foot & Ankle Surgery | DX: E11.42 Type 2 diabetes mellitus with diabetic polyneuropathy (principal); B35.1 Tinea unguium; L84 Corns and callosities; L85.3 Xerosis cutis; Z79.84 Long term (current) use of oral hypoglycemic drugs | CPT/HCPCS: 11056; 11721; 99213 ==

== ENCOUNTER → 2024-09-16 10:54 | Outpatient (BNVA) | payer MEDICARE, MEDICAID, SELFPAY | PROVIDERS: PCP Family Medicine; Visit Provider Podiatrist Foot & Ankle Surgery | DX: E11.42 Type 2 diabetes mellitus with diabetic polyneuropathy (principal); B35.1 Tinea unguium; L85.3 Xerosis cutis; L84 Corns and callosities; Z79.84 Long term (current) use of oral hypoglycemic drugs | CPT/HCPCS: 11721 ==

== ENCOUNTER → 2024-11-18 11:40 | Outpatient (BNVA) | payer MEDICARE, MEDICAID, SELFPAY | PROVIDERS: PCP Family Medicine; Visit Provider Podiatrist Foot & Ankle Surgery | DX: E11.42 Type 2 diabetes mellitus with diabetic polyneuropathy (principal); B35.1 Tinea unguium; L84 Corns and callosities; L85.3 Xerosis cutis; Z79.84 Long term (current) use of oral hypoglycemic drugs | CPT/HCPCS: 11721 ==

== ENCOUNTER → 2024-12-14 09:42 | Outpatient (BNVA) | payer MEDICARE, MEDICAID, SELFPAY | PROVIDERS: PCP Family Medicine; Visit Provider Orthopaedic Surgery | DX: M25.562 Pain in left knee (principal); G89.29 Other chronic pain; Z01.89 Encounter for other specified special examinations; M17.12 Unilateral primary osteoarthritis, left knee | CPT/HCPCS: 20610; 73560; 73565; 99204; J3301; J3490; J9999 ==

== ENCOUNTER 2024-12-18 08:56 | Outpatient (CLI) | payer MEDICARE, MEDICAID, SELFPAY ==
--- NOTE | 2024-12-18 09:00 | MM_ITS ---
WS: [email or web address] BILATERAL 3D TOMOSYNTHESIS DIGITAL SCREENING MAMMOGRAPHY WITH CAD CLINICAL INFORMATION: SCREEN HISTORY: Screening mammogram. No current complaints. COMPARISON: 2023 TECHNIQUE: Bilateral CC and MLO views. FINDINGS: Scattered fibroglandular densities bilaterally. No suspicious focal mass, asymmetry, calcifications, or architectural distortion. No evidence of malignancy. MM/MM scr BI tomosynthesis [id number] IMPRESSION: DENSITY: There are scattered areas of fibroglandular density. BI-RADS: 1 - Negative. FOLLOW UP: 1 Year Follow-up Recommend return to annual screening mammography.
== END 2024-12-18 08:57 | disposition home or self-care (01) ==
LOC: RAD 08:57
PROVIDERS: PCP Family Medicine; Visit Provider Family Medicine
DX: Z12.31 Encounter for screening mammogram for malignant neoplasm of breast (principal); R92.323 Mammographic fibroglandular density, bilateral breasts
CPT/HCPCS: 77063; 77067

== ENCOUNTER → 2025-01-04 10:45 | Outpatient (BNVA) | payer MEDICARE, MEDICAID, SELFPAY | PROVIDERS: PCP Family Medicine; Visit Provider Orthopaedic Surgery | DX: M25.562 Pain in left knee (principal); G89.29 Other chronic pain | CPT/HCPCS: 99213 ==

== ENCOUNTER → 2025-01-06 08:31 | Outpatient (BNVA) | payer MEDICARE, MEDICAID, OTHER, SELFPAY | PROVIDERS: PCP Family Medicine; Visit Provider Nurse Practitioner Psychiatric/Mental Health | DX: Z79.899 Other long term (current) drug therapy (principal) | CPT/HCPCS: 80178 ==

== ENCOUNTER 2025-01-08 09:55 | Outpatient (CLI) | payer MEDICARE, MEDICAID, SELFPAY ==
--- NOTE | 2025-01-08 10:03 | MR_ITS ---
WS: [id number] MRI HEAD WITH CONTRAST TECHNIQUE: Sagittal T1, T2 axial, T2 axial FLAIR, axial susceptibility weighted imaging, axial diffusion weighted images, and coronal T2 images were obtained. Pre and post-T1 axial and post T1 coronal images. ADC and FSPGR images. CLINICAL INFORMATION: MEMORY CHANGES/OTHER AMNESIA Comparison CT 2017. FINDINGS: No evidence of restricted diffusion to suggest acute ischemia. Mild small vessel changes. Mild parenchymal volume loss. Normal posterior fossa. Normal vascular flow voids at the skull base. No extra-axial fluid collections. Paranasal sinuses and mastoid air cells are well aerated. Normal posterior nasopharynx. No hemosiderin on susceptibility-weighted images. Normal optic chiasm and pituitary infundibulum. No abnormal intracranial enhancement. Temporal lobes and hippocampal formations are normal in appearance. Normal dural venous sinuses. No other suspicious findings. MR/MR head wo/w con [id number] IMPRESSION: 1. No evidence of restricted diffusion to suggest acute ischemia. 2. Mild small vessel changes. Mild parenchymal volume loss slightly progressed since 2017. 3. No hemosiderin on susceptibility-weighted images. 4. No abnormal gadolinium enhancement. 5. Temporal lobes and hippocampal formations are normal in appearance. 6. Normal dural venous sinuses.
[2025-01-08] MEDS: gadobenate dimeglumine 20 mL vial IV (10:52)
--- NOTE | 2025-01-08 11:08 | XR_ITS ---
WS: [email or web address] SCREENING DEXA SCAN [employer] CLINICAL INFORMATION: OSTEOPOROSIS SCREENING COMPARISON: 2021 FINDINGS: The L1-L4 bone mineral density measures 1.200 g/cm2. This corresponds to a T score score of 0.2 and Z score of 0.8. Left femoral neck bone mineral density measures 0.858 g/cm2. This corresponds to a T score of -1.2 and Z score of -0.6. Right femoral neck bone mineral density measures 0.827 g/cm2. This corresponds to a T score -1.4of and Z score of -0.9. Mean femoral neck bone mineral density measures 0.842 g/cm2. This corresponds to a T score of -1.3 and Z score of -0.8. XR/XR DEXA axial skeleton* [id number] IMPRESSION: Normal bone mineralization lumbar spine. Osteopenia femoral necks. Patient's FRAX calculated 10 year probability for major osteoporotic fracture i s 22.1% and osteoporotic hip fracture is 5.5%. Bone density lumbar spine increased 3.3% Bone density femoral necks increased 8.6%
== END 2025-01-08 09:56 | disposition home or self-care (01) ==
LOC: RAD 09:56
PROVIDERS: PCP Family Medicine; Visit Provider Family Medicine
DX: Z13.820 Encounter for screening for osteoporosis (principal); M81.0 Age-related osteoporosis without current pathological fracture; G31.89 Other specified degenerative diseases of nervous system; M85.88 Other specified disorders of bone density and structure, other site; I67.82 Cerebral ischemia
CPT/HCPCS: 70553; 77080; A9577

== ENCOUNTER → 2025-01-27 08:54 | Outpatient (BNVA) | payer MEDICARE, MEDICAID, SELFPAY | PROVIDERS: PCP Family Medicine; Visit Provider Podiatrist Foot & Ankle Surgery | DX: E11.42 Type 2 diabetes mellitus with diabetic polyneuropathy (principal); B35.1 Tinea unguium; L84 Corns and callosities; L85.3 Xerosis cutis; Z79.84 Long term (current) use of oral hypoglycemic drugs | CPT/HCPCS: 11721 ==